=== PATIENT | female | born 1940 | race Caucasian/White ===

== ENCOUNTER 2024-12-27 09:42 | Outpatient (OUT) | payer MEDICARE, SELFPAY ==
--- NOTE | 2024-12-27 10:02 | CT_ITS ---
The [address] [address] Patient Name: PEGGY KINNEY MRN: [id number] date: 1940 Sex: F Assigned Patient Location: CT Current Patient Location: CT Accession/Order Number: [id number] Exam Date: 12/27/2024 10:47 Report Date: 12/27/2024 10:50 At the request of: MARY STRICKLAND NP Procedure: CT head/brain wo con CT BRAIN WITHOUT CONTRAST: CLINICAL HISTORY: new onset left-sided headache and posterior pressure COMPARISON: None TECHNIQUE: Contiguous axial unenhanced images were obtained through the brain. This CT exam was performed using one or more following dose reduction techniques: Automated exposure control, adjustment of the mA and/or kV according to patient size, or use of iterative reconstruction technique. FINDINGS: There is generalized atrophy. The ventricles are normal in size and position. Mild microvascular changes are noted. There are no additional areas of abnormal attenuation. There is no hemorrhage, mass effect or extra-axial collections. The imaged paranasal sinuses and mastoid air cells are clear. There is minor carotid siphon and vertebral artery plaque CT/CT head/brain wo con IMPRESSION: ATROPHY AND MINOR MICROVASCULAR CHANGES. NO ACUTE INTRACRANIAL ABNORMALITY. Impression dictated by: Estrellita Olson M.D.12/27/2024 10:50 AM Dictation Location: [place] [address] Electronically authenticated by: [id number] Y Date: 12/27/2024 10:50
== END 2024-12-27 09:43 | disposition home or self-care (01) ==
PROVIDERS: PCP Internal Medicine; Visit Provider Nurse Practitioner Family
DX: R51.9 Headache, unspecified (principal); R53.83 Other fatigue
CPT/HCPCS: 70450